=== PATIENT | female | born 1980 | race Caucasian/White ===

== ENCOUNTER 2017-06-12 23:25 | Emergency (ER) | payer OTHER ==
[~2017-06-12] VITALS: Ht 162.6 cm; Wt 116.1 kg
[2017-06-12 23:25] VITALS: BP_SYST 154
[2017-06-12 23:54] LABS: BILIRUBIN,URINE NEGATIVE (NEGATIVE); BLOOD, URINE 3+ (NEGATIVE); CLARITY/URINE CLEAR (CLEAR); COLOR,URINE YELLOW (YELLOW); GLUCOSE,URINE NEGATIVE (NEGATIVE); KETONES,URINE NEGATIVE (NEGATIVE); LEUKOCYTE ESTERASE ,URINE NEGATIVE (NEGATIVE); NITRITE, URINE NEGATIVE (NEGATIVE); PH,URINE 6.5 (5.0-8.0); PROTEIN URINE NEGATIVE (NEGATIVE); UROBILINOGEN,URINE 0.2 (0.2-1.0)
[2017-06-13 00:08] LABS: BACTERIA,URINE FEW /HPF (None Seen); MUCUS,URINE None Seen /LPF (None Seen)
[2017-06-13 00:42] LABS: BASOPHILS % (AUTO) 0.4 % (0.0-2.0); EOSINOPHILS # (AUTO) 0.1 K/uL (0.0-0.4); EOSINOPHILS % (AUTO) 1.1 % (0.0-4.0); HEMATOCRIT 38.2 % (36-48); HEMOGLOBIN 12.8 g/dL (12.0-16.0); LYMPHOCYTES # (AUTO) 2.1 K/uL (1.0-5.5); MEAN CORPUSCULAR HEMOGLOBIN 28 pg (27-31); MEAN CORPUSCULAR HGB CONC 33 % (32-36); MEAN CORPUSCULAR VOLUME 83 fL (79.0-98.0); MONOCYTES # (AUTO) 0.3 K/uL (0.0-1.0); MONOCYTES % (AUTO) 4.6 % (1.7-9.3); NEUTROPHILS # (AUTO) 4.4 K/uL (1.8-7.7); NEUTROPHILS % (AUTO) 62.9 % (40.0-70.0); PLATELET COUNT (AUTO) 241 K/uL (130-430); RED BLOOD CELL COUNT(AUTO) 4.62 MIL/uL (4.2-6.2); RED CELL DISTRIBUTION WIDTH 12.6 % (9.0-15.0); WHITE BLOOD COUNT (AUTO) 6.9 K/uL (4.8-10.8)
[2017-06-13 01:49] VITALS: BP_SYST 143
== END 2017-06-13 01:49 | disposition home or self-care (01) ==
LOC: SED 23:25
DX: O20.0 Threatened abortion (principal); E11.9 Type 2 diabetes mellitus without complications; Z3A.10 10 weeks gestation of pregnancy
CPT/HCPCS: 36415; 76801; 76817; 81000-TC; 81025; 84702-TC; 85025; 86900; 86901; 99285

== ENCOUNTER 2017-06-13 10:54 | Emergency (ER) | payer OTHER ==
[~2017-06-13] VITALS: Ht 162.6 cm; Wt 116.1 kg
[2017-06-13 11:00] VITALS: BP_SYST 105
[2017-06-13 13:35] VITALS: BP_SYST 125
== END 2017-06-13 13:34 | disposition home or self-care (01) ==
LOC: SED 10:54
DX: O26.851 Spotting complicating pregnancy, first trimester (principal); E11.9 Type 2 diabetes mellitus without complications; Z3A.10 10 weeks gestation of pregnancy
CPT/HCPCS: 36415; 76801; 76817; 76830-TC; 84702-TC; 99285

== ENCOUNTER 2018-01-11 14:20 | Emergency (ER) | payer BC, OTHER ==
[~2018-01-11] VITALS: Ht 162.6 cm; Wt 119.3 kg
[2018-01-11] MEDS ORDERED: NACL 0.9% 1,000 ML IV ONE (14:24)
[2018-01-11 14:28] VITALS: BP_SYST 145
--- NOTE | 2018-01-11 14:29 | NUR ---
Patient to ER bed 4 to gown for evaluation. Side rails up.
--- NOTE | 2018-01-11 14:33 | NUR ---
PATIENT C/C OF HYPOGLYCEMIA. 0230 01/11/18 PATIENT STATES HER BLOOD GLUCOSE LEVEL IS 60MG/DL. SHE WOKE UP SWEATING, DRY HEAVING, AND HAVING CHILLS. PATIENT STATES SHE DRANK ORANGE JUICE AND WENT TO SLEEP PRIOR TO RECHECKING. PATIENT STATES SHE HELD HER MORNING DOSE OF INSULIN. PATIENT IS ESTIMATING 9 WEEKS , PATIENT STATES SHE NORMALLY TAKES METFORMIN, SO WHILE SHE IS CHECKING HER BLOOD SUGARS AND INSULIN FOR COVERAGE. PATIENT STATES SHE HAS INCREASED NAUSEA AND DRY HEAVING WITH THIS . THIS IS HER 5TH . MISCARRIAGE IN MAY.
--- NOTE | 2018-01-11 14:34 | NUR ---
ER Dr. Polanco at bedside examining patient.
--- NOTE | 2018-01-11 14:55 | NUR ---
PATIENT TO ULTRASOUND. TAKEN BY WHEELCHAIR.
[2018-01-11 15:09] LABS: BILIRUBIN,URINE NEGATIVE (NEGATIVE); BLOOD, URINE NEGATIVE (NEGATIVE); CALCIUM 9.2 mg/dL (8.4-11.0); CLARITY/URINE CLEAR (CLEAR); COLOR,URINE YELLOW (YELLOW); CREATININE 0.8 mg/dL (0.55-1.30); GLUCOSE,URINE NEGATIVE (NEGATIVE); KETONES,URINE TRACE (NEGATIVE); LEUKOCYTE ESTERASE ,URINE NEGATIVE (NEGATIVE); NITRITE, URINE NEGATIVE (NEGATIVE); POTASSIUM 3.8 mmol/L (3.5-5.1); PROTEIN URINE TRACE (NEGATIVE); UROBILINOGEN,URINE 0.2 (0.2-1.0)
[2018-01-11 15:14] LABS: BACTERIA,URINE MODERATE /HPF (None Seen); RBC,URINE 0-3 /HPF (0-3); WBC,URINE 0-3 /HPF (0-3)
[2018-01-11 15:20] LABS: BASOPHILS # (AUTO) 0.1 K/uL (0.0-0.2); BASOPHILS % (AUTO) 0.6 % (0.0-2.0); EOSINOPHILS % (AUTO) 0.4 % (0.0-4.0); HEMATOCRIT 39.9 % (36-48); HEMOGLOBIN 13.2 g/dL (12.0-16.0); LYMPHOCYTES # (AUTO) 2.1 K/uL (1.0-5.5); LYMPHOCYTES % (AUTO) 20.2 % (20.5-51.5); MEAN CORPUSCULAR HEMOGLOBIN 28 pg (27-31); MEAN CORPUSCULAR HGB CONC 33 % (32-36); MEAN CORPUSCULAR VOLUME 84 fL (79.0-98.0); MONOCYTES # (AUTO) 0.3 K/uL (0.0-1.0); MONOCYTES % (AUTO) 3.3 % (1.7-9.3); NEUTROPHILS # (AUTO) 7.8 K/uL (1.8-7.7); NEUTROPHILS % (AUTO) 75.5 % (40.0-70.0); PLATELET COUNT (AUTO) 305 K/uL (130-430); RED BLOOD CELL COUNT(AUTO) 4.76 MIL/uL (4.2-6.2); RED CELL DISTRIBUTION WIDTH 12.2 % (9.0-15.0); WHITE BLOOD COUNT (AUTO) 10.3 K/uL (4.8-10.8)
--- NOTE | 2018-01-11 15:30 | NUR ---
PATIENT RETURNED FROM ULTRASOUND. SPOUSE AT BEDSIDE.
[2018-01-11 15:35] LABS: ALBUMIN 3.6 g/dL (3.4-4.8); TOTAL BILIRUBIN 0.3 mg/dL (0.0-1.0)
--- NOTE | 2018-01-11 16:26 | NUR ---
ER Dr. Polanco at bedside explaining results to patient.
--- NOTE | 2018-01-11 16:58 | NUR ---
Patient given written and verbal discharge instructions and verbalizes understanding. ER MD discussed with patient the results and treatment provided. Patient in stable condition. ID arm band removed. IV catheter removed intact and dressing applied, no active bleeding. Patient educated on pain management and to follow up with PMD. Pain Scale 0/10. Blood sugar checked prior to discharge, 110mg/dl. Opportunity for questions provided and answered.
[2018-01-11 16:59] VITALS: BP_SYST 123
== END 2018-01-11 16:59 | disposition home or self-care (01) ==
LOC: SED 14:20
DX: O9A.211 Injury, poisoning and certain other consequences of external causes complicating pregnancy, first trimester (principal); T50.8X1A Poisoning by diagnostic agents, accidental (unintentional), initial encounter; E09.649 Drug or chemical induced diabetes mellitus with hypoglycemia without coma; R03.0 Elevated blood-pressure reading, without diagnosis of hypertension; Z3A.11 11 weeks gestation of pregnancy; Y92.89 Other specified places as the place of occurrence of the external cause
CPT/HCPCS: 36415; 76801; 76817; 80053; 81000; 84702; 85025; 86901; 87086; 96360; 96361; 99285; J7030

== ENCOUNTER 2018-06-16 08:05 | Observation (INO) | payer BC | END 2018-06-16 09:03 | disposition home or self-care (01) | LOC: SPU 08:05 | PROVIDERS: ADMIT Obstetrics & Gynecology; ATTEND Obstetrics & Gynecology | DX: O09.523 Supervision of elderly multigravida, third trimester (principal); Z3A.31 31 weeks gestation of pregnancy | CPT/HCPCS: 59025; G0378 ==

== ENCOUNTER 2018-06-20 10:39 | Observation (INO) | payer BC ==
[~2018-06-20] VITALS: Ht 162.6 cm; Wt 122.5 kg
== END 2018-06-20 12:48 | disposition home or self-care (01) ==
LOC: SPU 10:39
PROVIDERS: ADMIT Obstetrics & Gynecology; ATTEND Obstetrics & Gynecology
DX: O24.113 Pre-existing type 2 diabetes mellitus, in pregnancy, third trimester (principal); O09.523 Supervision of elderly multigravida, third trimester; Z3A.31 31 weeks gestation of pregnancy
CPT/HCPCS: G0378